=== PATIENT | male | born 1990 | race Caucasian/White ===

== ENCOUNTER → 2019-02-04 | Outpatient (CLI) | payer OTHER | LOC: LAB 16:25 | DX: M54.89 Other dorsalgia (principal) ==

== ENCOUNTER 2019-03-13 11:30 | Outpatient (RCR) | payer OTHER | END 2019-03-13 12:00 | disposition still patient (30) | LOC: PT 11:30 | DX: M54.89 Other dorsalgia (principal) ==

== ENCOUNTER → 2019-09-13 | Outpatient (CLI) | payer OTHER | LOC: LAB 09:58 | DX: J02.9 Acute pharyngitis, unspecified (principal); J34.89 Other specified disorders of nose and nasal sinuses; R51 Headache; Z20.828 Contact with and (suspected) exposure to other viral communicable diseases ==

== ENCOUNTER → 2022-03-08 | Outpatient (CLI) | payer OTHER ==
[2022-03-08 17:12] LABS: ALBUMIN 4.7 g/dL (3.5-5.0)
[2022-03-08 17:13] LABS: POTASSIUM 3.8 mmol/L (3.5-5.1)
[2022-03-08 17:14] LABS: CALCIUM 9.8 mg/dL (8.3-10.5)
== END ==
LOC: LAB 16:17
PROVIDERS: Nurse Practitioner Psychiatric/Mental Health
DX: Z79.899 Other long term (current) drug therapy (principal)

== ENCOUNTER 2022-12-08 18:12 | Emergency (ER) | payer OTHER ==
[~2022-12-08] VITALS: Ht 175.3 cm; Wt 90.9 kg
[~2022-12-08 18:12] MED LIST: AMOXICILLIN AND1 TA2 PO; EFFEXOR XR150 M1 PO; KETOROLAC10 MG PO; ZOFRAN ODT4 MG PO
[2022-12-08] MEDS ORDERED: NORCO 325 MG-51 TA1 PO (20:32)
[2022-12-08 20:45] VITALS: BP 158/97
== END 2022-12-08 20:45 | disposition home or self-care (01) ==
LOC: ED 18:12
DX: M25.511 Pain in right shoulder (principal); X58.XXXA Exposure to other specified factors, initial encounter; Y93.75 Activity, martial arts
CPT/HCPCS: J2270; J2360

== ENCOUNTER → 2023-10-26 | Outpatient (REF) | payer BC ==
[~2023-10-26] MED LIST changes: +NORCO 325 MG-51 TA1 PO
== END ==
LOC: LAB 10:56
DX: J06.9 Acute upper respiratory infection, unspecified (principal)